=== PATIENT | female | born 1955 | race Caucasian/White ===

== ENCOUNTER 2018-06-04 07:36 | Day surgery (SDC) | payer MEDICAID, SELFPAY ==
--- NOTE | 2018-06-03 18:19 | POEE_ITS ---
History of Present Illness Chief Complaint: Progressive decreased vision, right eye Narrative: The patient is a 62-year-old lady with history of progressive decreased vision in both eyes at both distance and near. She feels like there is a film over her vision and has been going on for the past several months. On examination she was noted to have bilateral nuclear cortical and posterior subcapsular cataracts, right eye much worse than left. Best corrected vision measured 20/60 in the right eye. The option of cataract surgery was offered to the patient and she wished to proceed. NOTE: The Chief Complaint, HPI, Past Medical History, Past Surgical History, Family History, Social History, Medications, and complete Ophthalmic Exam with detailed Assessment and Plan have already been documented in the patient's outpatient ophthalmic record and are not covered again in detail here. [facility] Medical History Cortical cataract of right eye (Acute) Nuclear sclerotic cataract of right eye (Acute) Posterior subcapsular age-related cataract, right eye (Acute) Cataract (Chronic) Osteoarthritis (Chronic) Surgical History History of open reduction and internal fixation (ORIF) procedure (Acute) History of esophagogastroduodenoscopy (EGD) (Chronic) Social History Smoking/Tobacco Use Status: Never Alcohol Intake: current Alcohol Intake frequency: holidays/special occasions only Drug use: Never Substance use type: does not use Do you feel safe at home: Yes Do you feel safe in your relationship?: Yes Meds Home Medications Medication Instructions Recorded Confirmed Type Cbd Oil 1 cap PO BID 06/01/18 06/01/18 History Clark Efa 1 ea PO DAILY 06/01/18 06/01/18 History beta carotene 25,000 unit PO DAILY 06/01/18 06/01/18 History magnesium glycinate 400 mg PO DAILY 06/01/18 06/01/18 History niacin 250 mg PO HS 06/01/18 06/01/18 History niacin 500 mg PO HS 06/01/18 06/01/18 History riboflavin (vitamin B2) 50 mg PO HS 06/01/18 06/01/18 History riboflavin (vitamin B2) 100 mg PO DAILY 06/01/18 06/01/18 History selenium 200 mcg PO DAILY 06/01/18 06/01/18 History vitamin Q65-erptb acid 1 tab PO DAILY 06/01/18 06/01/18 History vitamin E 200 unit PO DAILY 06/01/18 06/01/18 History zinc 50 mg PO DAILY 06/01/18 06/01/18 History Allergies Allergy/AdvReac Type Severity Reaction Status Date / Time No Known Allergies Allergy Unverified 05/31/18 15:03 Exam OCULAR EXAM:: Most recent ocular examination is significant for best corrected vision of 20/60 OD, 20/20 OS. Intraocular pressures 14 OU. Extraocular motility is normal. Pupils equal, round, and reactive without afferent pupillary defect slit-lamp examination is significant for pupils dilating to 5 mm OU. 1+ nuclear cataract OU with trace posterior subcapsular cataract OS. In the right eye there is a slight anterior cortical cataract with a dense 3+ posterior subcapsular cataract. Dilated funduscopic examination reveals disc cupping of 0.3 OU with good color. The optic nerves have good perfusion and normal color. The retinal vasculature is normal without significant tortuosity or abnormality. The maculas are normal in appearance with normal contour and foveal reflex appropriate for age. The peripheral retina and vitreous are normal. BRIGHTNESS ACUITY TESTING (BAT):: Brightness acuity testing of the right eye off is 20/60. Lowest 20/60. Medium is 20/200. On the high setting is 20/400. Assessment and Plan (1) Posterior subcapsular age-related cataract, right eye: Current visit: No Status: Acute Assessment: Visually significant cataract, right eye. Plan: Cataract extraction with intraocular lens implantation, right eye (2) Nuclear sclerotic cataract of right eye: Current visit: No Status: Acute Assessment: Visually significant cataract, right eye. Plan: Cataract extraction with intraocular lens implantation, right eye (3) Cortical cataract of right eye: Current visit: No Status: Acute Assessment: Visually significant cataract, right eye. Plan: Cataract extraction with intraocular lens implantation, right eye Note: NOTE:: The details of the planned surgery, including the risks, indications,limitations,expectations,outcome and possible complications were explained to the patient. The patient understands the complications including, but not limited to: infection, hemorrhage, posterior dislocation of the lens or nuclear fragments which may require the intervention of a vitreoretinal surgeon, possible loss of the eye, or from anesthetic complications. The patient has been made aware of the option of not having surgery, that vision following surgery may not be equal to that prior to surgery, and that the planned surgery may not achieve the intended results. Following this discussion, which the patient appeared to understand, the patient wishes to proceed with cataract surgery with lens implantation of the affected eye to improve and maximize vision.
[2018-06-04 08:31] VITALS: BP 144/72; PULSE 56; RESP 16; TEMP 36.3; O2SAT 100
[2018-06-04] MEDS: Tetracaine 0.5% 4 ML BTL OD ×4 (08:39→10:21)
[2018-06-04] MEDS: Tropicam./Phenyleph. (1/2.5%) 5 ML BTL OD ×3 (08:39→08:49)
--- NOTE | 2018-06-04 09:55 | W.PM.DSUDISC ---
Discharge Plan Disposition Patient Disposition: HOME Condition: Stable Discharge Details Attending Provider: Billy Garcia Primary Care Provider: Janie Rae Home Meds and New Rx's Prescriptions: No Action vitamin E 200 unit Capsule 200 unit PO DAILY RF: 0 beta carotene 25,000 unit Capsule 25,000 unit PO DAILY RF: 0 selenium 200 mcg Tablet 200 mcg PO DAILY RF: 0 zinc 50 mg Tablet 50 mg PO DAILY RF: 0 niacin 250 mg Tablet 500 mg PO HS RF: 0 niacin 250 mg Tablet 250 mg PO HS RF: 0 riboflavin (vitamin B2) 50 mg Tablet 50 mg PO HS RF: 0 riboflavin (vitamin B2) 50 mg Tablet 100 mg PO DAILY RF: 0 magnesium glycinate 100 mg Tablet 400 mg PO DAILY RF: 0 vitamin J42-wturk acid 500-400 mcg Tablet 1 tab PO DAILY RF: 0 Cbd Oil 1 cap PO BID RF: 0 Clark Efa 1 ea PO DAILY RF: 0 Discharge Instructions Stand Alone Forms: Post-op Topical Cataract, Aleja Bray (DSU) Discharge Orders Discharge Orders: Discharge Order (Routine); Ordered 06/04/18 Ordered By: Billy Garcia DS: Diagnosis Discharge Diagnosis (1) Posterior subcapsular age-related cataract, right eye: Status: Resolved (2) Nuclear sclerotic cataract of right eye: Status: Resolved (3) Cortical cataract of right eye: Status: Resolved (4) Status post cataract extraction and insertion of intraocular lens of right eye: Status: Chronic
[2018-06-04] MEDS: Lidocaine 2% Jelly 6 ML SYR (10:07)
[2018-06-04] MEDS: Lidocaine 1% Pres-Free 5 ML VIAL (10:12)
[2018-06-04] MEDS: Balanced Salt Soln.-PLUS 500 ML BAG (10:12)
[2018-06-04] MEDS: Trypan Blue 0.06% 0.5 ML SYR (10:27)
[2018-06-04] MEDS: Povidone-Iodine Ophth 30 ML BTL (10:42)
--- NOTE | 2018-06-04 10:52 | W.PM.OP ---
Date of service: 06/04/18 Time of Service: 10:52 Operative Note PRE-OP DIAGNOSIS: Cataract, right eye, with poor red reflex PROCEDURE: Cataract extraction using phacoemulsification with intraocular lens implantation, right eye, using capsular staining with Vision Blue SURGEON: Billy Garcia ANESTHESIA: MAC (with local sub-tenon's anesthetic injection) PATHOLOGY: none sent COMPLICATIONS: None Patient was transported to: same day Patient's condition: stable Implants: Trevor and Trevor / [employer] Opt[employer] Tecnis [id number] Indications: Progressive visual loss due to cataract, right eye Procedure Description: CATARACT SURGERY OPERATIVE REPORT PREOPERATIVE DIAGNOSIS: 1. Nuclear/cortical/posterior subcapsular cataract, right eye 2. Poor red reflex secondary to #1 POSTOPERATIVE DIAGNOSIS: Same OPERATION: 1. Cataract extraction using phacoemulsification with posterior chamber intraocular lens implant, right eye. 2. Capsular staining with Vision Blue IOL: IOL Grinder Set Up Operator Universal/Model: Trevor & Trevor / ELLIOTT Tecnis [id number] IOL Power: + 24.0 diopters IOL Serial Number: [id number] Optic Diameter: 6.0mm Haptic/Overall Diameter: 13.0mm PHACO INFO: Roel Fitsistanturion Vision System with OZil and Active Fluidics Cumulative Dispersed Energy (CDE): 11.23 seconds SURGEON: Billy Garcia MD, RADHA ANESTHESIA: Monitored Anesthesia Care (MAC), with local sub-tenon's anesthetic infiltration COMPLICATIONS: None SPECIMENS: None INDICATIONS FOR PROCEDURE: The patient is a 62-year old lady with history of progressive decreased vision in her right eye. She is noted to have a dense posterior subcapsular cataract with milder nuclear and cortical cataract in the right eye. The option of cataract surgery was offered to the patient and she wished to proceed. PROCEDURE: The correct surgical eye was identified and marked as the right eye and the pupil was dilated in the preoperative area using mydriatics and cycloplegics. The dilated pupil size was 6.5 mm. Oral sedation was administered in the form of an Imprimis MKO Melt (midazolam 3mg/ketamine 25mg/ondansetron 2mg). The patient was brought to the operating room where cardiopulmonary monitoring was instituted and surgical time-out was performed, confirming the correct operative eye and IOL power. Topical anesthesia was administered and ophthalmic povidone-iodine 5% was instilled into the conjunctival fornices. Lidocaine gel was applied to the cornea and the raul-ocular area was prepped with Betadine 10% solution and draped in the usual sterile fashion for intraocular surgery, including an aperture drape. A Tegaderm transparent film dressing was cut in half and used to cover the lashes and lid margins. Care was taken to sequester the lashes and lid margins under the Tegaderm dressing. A lid speculum was placed between the lids of the operative eye and the Epi-Ashleigh operating microscope was maneuvered into position. Joe scissors were then used to make a conjunctival buttonhole approximately 6mm posterior to the limbus in the inferonasal quadrant. Blunt dissection was carried out to expose bare sclera, and a blunt-tipped sub-tenon?s anesthesia cannula was introduced and passed posteriorly along the globe where non-preserved plain lidocaine was injected into posterior sub-Tenon?s space. A sideport knife was used to make a paracentesis port at the 7:00 position. Air was injected into the anterior chamber, followed by Vision Blue, which was painted over the anterior capsule and then irrigated out with BSS. The anterior chamber was filled with Healon GV. A 2.4mm keratome knife was used to create a half-thickness groove at the limbus and then to construct a three-plane near-clear corneal tunnel extending 2.0mm into clear cornea at the 10:00 position. A flap was raised on the anterior capsule and capsulorhexis forceps were used to complete a continuous curvilinear capsulorhexis of 5.0 mm. Balanced salt solution was then used to perform cortical cleaving hydrodissection and nuclear hydrodelineation until the lens could be freely rotated within the capsular bag. The lens nucleus was then disassembled and removed within the capsular bag and iris plane using phacoemulsification. Residual cortical material was removed using the I/A handpiece. The posterior capsule was carefully polished to remove as much residual lens epithelial cells as safely possible. There was some residual posterior subcapsular plaque nasally which could not be safely removed despite extensive polishing. The capsular bag was then inflated and the anterior chamber deepened with viscoelastic. The lens implant described above was inserted into the capsular bag using the ELLIOTT Tunica-Biloxi Injector. A Kuglen hook was used to dial the IOL into position. Residual viscoelastic was then removed first from posterior to the IOL, then from the anterior chamber using the I/A handpiece. The lens implant was noted to center nicely within the capsular bag. The incisions were stromally hydrated, and the anterior chamber was reformed using BSS. Then 0.4cc of moxifloxacin 1.5mg/ml were injected into the capsular bag and anterior chamber. The incisions were checked with a Weck spear and found to be secure. Several drops of ophthalmic povidone-iodine 5% were then applied to the eye followed by two drops of Imprimis combination gatifloxacin/dexamethasone solution. The drapes were removed and a clear plastic protective eye shield was placed over the eye. The patient was then returned to Same Day Surgery in stable condition.
[2018-06-04 11:20] VITALS: BP 118/55; PULSE 55; RESP 14; TEMP 35.8; O2SAT 100
== END 2018-06-04 11:35 | disposition home or self-care (01) ==
PROVIDERS: PCP Physician Assistant Medical; Visit Provider Ophthalmology
PROC: (CPT 66982; principal; 2018-06-04 10:30)
DX: H25.811 Combined forms of age-related cataract, right eye (principal); H35.89 Other specified retinal disorders
CPT/HCPCS: 66982; V2632

== ENCOUNTER 2018-07-30 18:52 | Emergency (ER) | payer MEDICAID, SELFPAY ==
[2018-07-30 18:55] VITALS: BP 130/80; PULSE 74; RESP 16; TEMP 36.6; O2SAT 99
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
== END 2018-07-30 19:23 | disposition home or self-care (01) ==
PROVIDERS: Emergency Provider Physician Assistant; PCP Physician Assistant Medical
DX: S50.862A Insect bite (nonvenomous) of left forearm, initial encounter (principal); W57.XXXA Bitten or stung by nonvenomous insect and other nonvenomous arthropods, initial encounter
CPT/HCPCS: 99282

== ENCOUNTER 2021-06-28 10:21 | Day surgery (SDC) | payer MEDICAID, SELFPAY ==
[2021-06-28 10:43] VITALS: BP 158/79; PULSE 62; RESP 16; TEMP 36.4; O2SAT 100
[2021-06-28] MEDS: Tropicam./Phenyleph. (1/2.5%) 5 ML BTL OS ×3 (10:54→11:11)
--- NOTE | 2021-06-28 11:31 | W.ANESPRE ---
General Info Date of Service Date Performed: 06/28/21 Height: 5 ft 4 in Weight: 75.5 kg Body Mass Index (BMI): 28.5 Surgical Procedure: Operation Date: 06/28/21 12:25 Proposed Procedure Side Surgeon p Cataract Extraction with IOL Implant Left Billy Garcia MD Meds Allergies and Home Medications Allergies Allergy/AdvReac Type Severity Reaction Status Date / Time No Known Allergies Allergy Unverified 06/28/21 10:42 Home Medication Medication Instructions Recorded Cbd Oil 1 cap PO BID 06/01/18 Clark Efa 1 ea PO DAILY 06/01/18 beta carotene 25,000 unit capsule 25,000 unit PO DAILY 06/01/18 magnesium glycinate 100 mg tablet 400 mg PO DAILY 06/01/18 selenium 200 mcg tablet 200 mcg PO DAILY 06/01/18 vitamin E 200 unit capsule 200 unit PO DAILY 06/01/18 zinc 50 mg tablet 50 mg PO DAILY 06/01/18 vitamin B complex 1 cap PO DAILY 06/24/21 Current Visit Medications: Current Medications Generic Name Dose Route Start Last Admin Trade Name Freq PRN Reason Stop Dose Admin Acetaminophen 1,000 mg 06/28/21 06:00 Acetaminophen 500 Mg Tab PO Q4H PRN PRN Miscellaneous Medication 0 ml 06/28/21 06:00 Prednisolone 1%, Moxifloxacin 0.5%, Nepafenac 0.1% 5ml Btl OS DIRECTED PREMA Miscellaneous Medication 0 ml 06/28/21 06:00 06/28/21 11:11 Tropicam./Phenyleph. (1/2.5%) 5 Ml Btl OS 1 drp DIRECTED PREMA Administration Tetracaine HCl 0 ml 06/28/21 06:00 Tetracaine 0.5% 4 Ml Btl OS DIRECTED PREMA PFSH Active Problems Active Problems: Problem Status Onset Code Nuclear sclerotic cataract of left eye H25.12 Status post cataract extraction and insertion of intraocular lens of right eye 06/04/18 Z98.41, Z96.1 Medical History Medical History Cataract Cortical cataract of right eye Nuclear sclerotic cataract of right eye Osteoarthritis Posterior subcapsular age-related cataract, right eye Surgical History Surgical History History of esophagogastroduodenoscopy (EGD) dilated esophagus History of open reduction and internal fixation (ORIF) procedure Right ankle 2007 Tobacco Smoking/Tobacco Use Status: Never Alcohol Alcohol Intake: current Alcohol intake frequency: holidays/special occasions only Substance Use Substance use: Never Substance use type: does not use Vital Signs and Lab Results Vital Signs Most Recent Vital Signs in EMR: Most Recent Vital Signs Temp Pulse Resp BP Pulse Ox 36.4 C L 62 16 158/79 H 100 06/28/21 10:43 06/28/21 10:43 06/28/21 10:43 06/28/21 10:43 06/28/21 10:43 Lab Results Blood Type / Crossmatch: No Data to Display Complete Blood Count: No Data to Display Complete Metabolic Panel: No Data to Display Liver Function Panel: No Data to Display Coagulation Panel: No Data to Display Cardiac Panel: No Data to Display Arterial Blood Gas: No Data to Display Venous Blood Gas: No Data to Display Pancreas Panel: No Data to Display Thyroid Panel: No Data to Display Infectious Disease: No Data to Display Blood Cultures: No Data to Display Toxicology Panel: No Data to Display Anesthesia Assessment and Plan Anesthesia History Personal History: No History of Anesthesia Complications Family History: No Family History of Anesthesia Complications Exercise Tolerance Exercise Tolerance: Metabolic Equivalents>4 Pertinent Negatives Pertinent Negatives: No Symptoms of GERD, No Major Cardiovascular Symptoms or Complaints, No Major Pulmonary Symptoms or Complaints and No History of CVA/TIA Cardiac & Pulmonary Exam Cardiac Exam: Normal S1/S2 Heart Sounds Pulmonary Exam: Clear Bilateral Breath Sounds Implantable Cardiac Device Does patient have a Pacemaker or an ICD?: No Airway Exam Known Difficult Airway: No Mallampati Class: 1 Mouth Opening: Normal (> 3cm) Thyromental Distance: Greater than 3 cm Neck Range of Motion: Full ROM Neck Circumference: Normal Teeth Condition: Normal Dentition ASA Classification ASA Score: ASA 2 Emergency Case?: No NPO Status NPO Status: NPO Clears >2 hours, Solids >8 hours Anesthesia Plan Resuscitation Status: Full Code Anesthesia Technique: MAC Anesthesia Airway Planned: Natural Airway Monitors Used: Standard Monitors
[2021-06-28 11:33] VITALS: BMI 28.5
[2021-06-28] MEDS: Tetracaine 0.5% 4 ML BTL OS (12:15)
[2021-06-28] MEDS: Lidocaine 2% Jelly 6 ML SYR (12:16)
[2021-06-28] MEDS: Povidone-Iodine Ophth 30 ML BTL (12:17)
[2021-06-28] MEDS: Balanced Salt Soln.-PLUS 500 ML BAG (12:21)
[2021-06-28] MEDS: Duovisc Viscoelastic System EACH 1 EACH ×2 (12:21→12:40)
[2021-06-28 13:10] VITALS: BP 137/62; PULSE 56; RESP 18; TEMP 35.7; O2SAT 100
--- NOTE | 2021-06-28 13:13 | W.PM.DSUDISC ---
Discharge Plan Disposition Patient Disposition: HOME Condition: Good Discharge Details Attending Provider: Billy Garcia Primary Care Provider: Janie Rae Home Meds and New Rx's Prescriptions: No Action vitamin E 200 unit Capsule 200 unit PO DAILY beta carotene 25,000 unit Capsule 25,000 unit PO DAILY selenium 200 mcg Tablet 200 mcg PO DAILY zinc 50 mg Tablet 50 mg PO DAILY magnesium glycinate 100 mg Tablet 400 mg PO DAILY Cbd Oil 1 cap PO BID Clark Efa 1 ea PO DAILY vitamin B complex [B Complex] Capsule 1 cap PO DAILY Discharge Instructions Stand Alone Forms: Post-op Topical Cataract, Aleja Bray (DSU) Discharge Orders Discharge Orders: Discharge Order (Routine); Ordered 06/28/21 Ordered By: Billy Garcia DS: Diagnosis Discharge Diagnosis (1) Nuclear sclerotic cataract of left eye: Status: Resolved
--- NOTE | 2021-06-28 13:14 | ROE_ITS ---
Date of service: 06/28/21 Time of Service: 12:15 Operative Note Operative Note DATE OF PROCEDURE: 06/28/21 PRE-OP DIAGNOSIS: Nuclear cataract, left eye POST-OP DIAGNOSIS: same PROCEDURE: Cataract extraction using phacoemulsification with intraocular lens implant, left eye SURGEON: Billy Garcia ANESTHESIA TYPE: Local By Surgeon and MAC Refer to Anesthesia Record PATHOLOGY: none sent COMPLICATIONS: None Patient was transported to: same day Patient's condition: stable Implants: [employer] Trevor / [employer] Tecnis [id number] Indications: Progressive decreased vision due to cataract, left eye Procedure Description: CATARACT SURGERY OPERATIVE REPORT PREOPERATIVE DIAGNOSIS: 1. Nuclear cataract, left eye POSTOPERATIVE DIAGNOSIS: Same OPERATION: 1. Cataract extraction using phacoemulsification with posterior chamber intraocular lens implant, left eye. IOL: IOL Consultant Rn/Model: Trevor & Trevor / ELLIOTT Tecnis [id number] IOL Power: + 24.5 diopters IOL Serial Number: [id number] Optic Diameter: 6.0 mm Haptic/Overall Diameter: 13.0 mm PHACO INFO: RoelEdamam Vision System with OZil and Active Fluidics Cumulative Dispersed Energy (CDE): 5.60 seconds SURGEON: Billy Garcia MD, RADHA ANESTHESIA: Monitored A [facility] (MAC), with local sub-tenon's anesthetic infiltration COMPLICATIONS: None SPECIMENS: None INDICATIONS FOR PROCEDURE: The patient is a 65-year-old lady with history of diminished visual acuity in her left eye secondary to development of nuclear cataract. She has previously undergone cataract surgery in her right eye several years ago. She is significantly symptomatic in her left eye that she desires cataract surgery attempt to improve and maximize her vision. PROCEDURE: The correct surgical eye was identified and marked as the left eye and the pupil was dilated in the preoperative area using mydriatics and cycloplegics. The dilated pupil size was 7.0 mm. Oral sedation was administered in the form of an Imprimis MKO Melt (midazolam 3mg/ketamine 25mg/ondansetron 2mg). The patient was brought to the operating room where cardiopulmonary monitoring was instituted and surgical time-out was performed, confirming the correct operative eye and IOL power. Topical anesthesia was administered and ophthalmic povidone-iodine 5% was instilled into the conjunctival fornices. Lidocaine gel was applied to the cornea and the raul-ocular area was prepped with Betadine 10% solution and draped in the usual sterile fashion for intraocular surgery, including an aperture drape. A Tegaderm transparent film dressing was cut in half and used to cover the lashes and lid margins. Care was taken to sequester the lashes and lid margins under the Tegaderm dressing. A lid speculum was placed between the lids of the operative eye and the Roel Lux[employer] Revalia operating microscope was maneuvered into position. Joe scissors were then used to make a conjunctival buttonhole approximately 6mm posterior to the limbus in the inferonasal quadrant. Blunt dissection was carried out to expose bare sclera, and a blunt-tipped sub-tenon?s anesthesia cannula was introduced and passed posteriorly along the globe where non- preserved plain lidocaine was injected into posterior sub-Tenon?s space. A sideport knife was used to make a paracentesis port superiorly/superiortemporally. Intraocular phenylephrine/lidocaine was injected int the anterior chamber.. The anterior chamber was filled with viscoelastic. A 2.4mm keratome knife was used to construct a 2-plane near-clear corneal tunnel extending 2.0mm into clear cornea temporally. A flap was raised on the anterior capsule and capsulorhexis forceps were used to complete a continuous curvilinear capsulorhexis of 5.5 mm. Balanced salt solution was then used to perform cortical cleaving hydrodissec tion and nuclear hydrodelineation until the lens could be freely rotated within the capsular bag. The lens nucleus was then disassembled and removed within the capsular bag and iris plane using phacoemulsification. Residual cortical material was removed using the 45-degree angled silicone I/A tip with 0.3mm port. The posterior capsule was carefully polished to remove as much residual lens epithelial cells as safely possible. The capsular bag was then inflated and the anterior chamber deepened with viscoelastic. The lens implant described above was inserted into the capsular bag using the ELLIOTT Nichols Injector. A Kuglen hook was used to dial the IOL into position. While positioning the IOL, the trailing haptic was noted to be kinked with an approximately 90% defect of the integrity. It was felt that this lens implant would not center correctly if left in the eye. Viscoat was then injected under the IOL and into the anterior chamber, and the IOL was prolapsed completely into the anterior chamber. A second lens implant of identical power was then injected into the capsular bag underneath the damaged IOL. Micro graspers and microscissors were then used to fixate and bisect the damaged IOL into 2 halves. The main sacral incision was enlarged slightly in the 2 halves of the IOL were explanted. Residual viscoelastic was then removed first from posterior to the IOL, then fro m the anterior chamber using the I/A handpiece. The lens implant was noted to center nicely within the capsular bag. The incisions were stromally hydrated, and the anterior chamber was reformed using BSS. Then 0.5cc of moxifloxacin 1.0mg/ml were injected into the capsular bag and anterior chamber. The incisions were checked with a Weck spear and found to be secure. Several drops of ophthalmic povidone-iodine 5% were then applied to the eye followed by two drops of Imprimis combination prednisolone/moxifloxacin/nepafenac solution. The drapes were removed and a clear plastic protective eye shield was placed over the eye. The patient was then returned to Same Day Surgery in stable condition.
--- NOTE | 2021-06-28 13:14 | W.ANESPOSTOP ---
Postoperative Evaluation Date, Time and Location Date Performed: 06/28/21 Time Performed: 13:14 Patient Location: Day Surgery Unit Vital Signs Most Recent Imported Vital Signs: Most Recent Vital Signs Temp Pulse Resp BP Pulse Ox 36.4 C L 62 16 158/79 H 100 06/28/21 10:43 06/28/21 10:43 06/28/21 10:43 06/28/21 10:43 06/28/21 10:43 Pain Score Most Recent Pain Score: Most Recent Pain Score Pain Level 0 06/28/21 12:48 Assessment Mental Status: Awake (Alert & Oriented to Patient Baseline) Airway and Respiratory Function: Patent airway with normal (patient baseline) respiratory exam Cardiovascular Function: Hemodynamically Stable Hydration Status: Adequately Hydrated Nausea & Vomiting: No Nausea or Vomiting Pain: Pt. Denies Any Pain Peripheral Nerve Block: Patient did not receive a nerve block
[2021-06-28 13:28] VITALS: BP 137/77; PULSE 57; RESP 18; TEMP 36; O2SAT 100
== END 2021-06-28 13:44 | disposition home or self-care (01) ==
PROVIDERS: PCP Physician Assistant Medical; Visit Provider Ophthalmology
PROC: (CPT 66984; principal; 2021-06-28 12:15)
DX: H25.12 Age-related nuclear cataract, left eye (principal)
CPT/HCPCS: 66984; V2632